=== PATIENT | female | born 1990 | race Caucasian/White ===

== ENCOUNTER 2019-01-09 11:56 | Emergency (ER) | payer SELFPAY ==
[~2019-01-09] VITALS: Ht 162.6 cm; Wt 116.6 kg
[2019-01-09 12:00] VITALS: BP 137/85
--- NOTE | 2019-01-09 12:15 | NUR ---
PATIENT AMBULATED TO BED 3.
--- NOTE | 2019-01-09 12:27 | NUR ---
PT PRESENTED TO THE ED WITH THE CHIEF C/O DIZZINESS AND BACK PAIN FOR 2 MONTHS. NO SYNCOPAL EPISODE PER PT. DENIES ANY HEAD INJURY OR FALL. NAUSEATED AT THIS TIME. DENIES VOMITING AND DIARRHEA AT THIS TIME. HAD VOMITING X1 YESTERDAY. STATES HEADACHE 10/10 AND BLURRY VISISON. VSS.
--- NOTE | 2019-01-09 12:35 | NUR ---
PT EVALUATED BY VALERIE PETTY.
[2019-01-09] MEDS ORDERED: KETOROLAC 60 MG/2 ML VIAL IM ONE (12:55)
--- NOTE | 2019-01-09 13:16 | NUR ---
IM MEDS GIVEN-NADR AT THIS TIME
--- NOTE | 2019-01-09 13:16 | NUR ---
PT SENT TO CT WITH TECH VIA W/C AAOX4 AT THIS TIME
--- NOTE | 2019-01-09 14:45 | NUR ---
Patient discharged with v/s stable. Written and verbal after care instructions given and explained. Patient alert, oriented and verbalized understanding of instructions. Ambulatory with steady gait. All questions addressed prior to discharge. ID band removed. Patient advised to follow up with PMD. Rx of KETOROLAC given. Patient educated on indication of medication including possible reaction and side effects. Opportunity to ask questions provided and answered.
[2019-01-09 14:46] VITALS: BP 106/65
== END 2019-01-09 14:45 | disposition home or self-care (01) ==
LOC: MED 11:56
DX: M43.6 Torticollis (principal); G89.29 Other chronic pain
CPT/HCPCS: 72125; 81002; 81025; 82948; 96372; 99284; J1885